=== PATIENT | female | born 1985 | race Caucasian/White ===

== ENCOUNTER 2021-03-29 00:09 | Emergency (ER) | payer OTHER, SELFPAY ==
[2021-03-29 00:15] VITALS: BP 153/92; PULSE 105; RESP 18; TEMP 36.9; O2SAT 98; BMI 29.0
== END 2021-03-29 01:04 | disposition left against medical advice (07) ==
PROVIDERS: Emergency Provider Emergency Medicine
CPT/HCPCS: 99281